=== PATIENT | male | born 1950 | race Caucasian/White ===

== ENCOUNTER 2019-05-16 08:34 | Inpatient (IN) | payer OTHER, MEDICAID ==
[~2019-05-16] VITALS: Ht 111.8 cm; Wt 69.4 kg
[2019-05-16 08:34] VITALS: BP 181/58
--- NOTE | 2019-05-16 08:34 | NUR ---
Patient BIBA ALS accompanied by Lio ramesh 101, transferred to bed 7. RN evaluating patient at bedside.
--- NOTE | 2019-05-16 08:52 | NUR ---
ariana in by ems from [facility]---pt states has had hacking cough x 3 days anterior chest wall pain with cough---awoke with sob
[2019-05-16] MEDS ORDERED: TRA200 PO (08:53)
[2019-05-16] MEDS ORDERED: GLIP10TE PO (08:53)
[2019-05-16] MEDS ORDERED: MAGN400S60 PO (08:53)
[2019-05-16] MEDS ORDERED: MULT-1640 PO (08:53)
[2019-05-16] MEDS ORDERED: HYDR100T79 PO (08:53)
[2019-05-16] MEDS ORDERED: PRAV20TA2 PO (08:53)
[2019-05-16] MEDS ORDERED: GABA300C PO (08:53)
[2019-05-16] MEDS ORDERED: CYCL25CA9 PO (08:53)
[2019-05-16] MEDS ORDERED: AMLO5TAB PO (08:53)
[2019-05-16] MEDS ORDERED: METF500T2 PO (08:53)
[2019-05-16] MEDS ORDERED: BISA-213 RC (08:53)
[2019-05-16] MEDS ORDERED: OMEP40EC24 PO (08:53)
[2019-05-16] MEDS ORDERED: PRED5TAB7 PO (08:53)
[2019-05-16] MEDS ORDERED: ASPI-1718 PO (08:53)
--- NOTE | 2019-05-16 09:06 | NUR ---
REPORT OBTAINED FROM DEB RN
[2019-05-16] MEDS ORDERED: predniSONE 20 MG TAB PO ONE (09:40)
[2019-05-16 10:51] LABS: BASOPHILS % (AUTO) 0.3 % (0.0-2.0); EOSINOPHILS # (AUTO) 0.1 K/uL (0-0.4); HEMATOCRIT 42.1 % (36-52); LYMPHOCYTES # (AUTO) 1.3 K/uL (2.0-11.5); LYMPHOCYTES % (AUTO) 9.9 % (20.5-51.1); MEAN CORPUSCULAR HEMOGLOBIN 29 pg (27-31); MEAN CORPUSCULAR HGB CONC 33 g/dL (33-37); MEAN CORPUSCULAR VOLUME 87.4 fL (80-94); MONOCYTES % (AUTO) 7.6 % (1.7-9.3); NEUTROPHILS # (AUTO) 10.6 K/uL (1.8-7.7); NEUTROPHILS % (AUTO) 81.2 % (42.2-75.2); PLATELET COUNT (AUTO) 261 K/uL (140-450); RED BLOOD CELL COUNT(AUTO) 4.81 MIL/uL (4.20-6.10); RED CELL DISTRIBUTION WIDTH 14.1 % (11.6-13.7); WHITE BLOOD COUNT (AUTO) 13.1 K/uL (4.8-10.8)
[2019-05-16] MEDS ORDERED: FUROSEMIDE 40 MG/4 ML VIAL IVP ONE (11:30)
--- NOTE | 2019-05-16 11:34 | NUR ---
[facility] [employer] [employer] [employer] MARKUP CLERK CALLED FOR CRITICAL LAB REPORT
[2019-05-16 11:39] LABS: ANION GAP 17.2 (8-16); CARBON DIOXIDE 20.4 mmol/L (21-32); CREATININE 1.2 mg/dL (0.7-1.3); POTASSIUM 3.6 mmol/L (3.5-5.1)
[2019-05-16 11:45] LABS: ALBUMIN 2.6 g/dL (3.4-5.0); TOTAL BILIRUBIN 0.9 mg/dL (0.0-1.0)
[2019-05-16] MEDS: NACL 0.9% 1,000 ML IV SCH (12:08)
[2019-05-16] MEDS ORDERED: HYDROcodone/APAP 7.5/325 MG 1 TAB PO PRN (12:10)
[2019-05-16] MEDS ORDERED: KETOROLAC 30 MG/ML VIAL IVP PRN (12:10)
[2019-05-16] MEDS ORDERED: ONDANSETRON 4 MG/2 ML VIAL IM/IVP PRN (12:10)
[2019-05-16] MEDS ORDERED: DOCUSATE SODIUM 100 MG GELCAP PO PRN (12:10)
--- NOTE | 2019-05-16 12:15 | NUR ---
Dr. Jones is evaluating the patient at bedside.
--- NOTE | 2019-05-16 12:31 | NUR ---
SKIN BLANCHEABLE ON BUTTOCKS, CHARGE NURSE NOTIFIED.
[2019-05-16] MEDS ORDERED: hePARIN / DEXT 5% PREMIX 250 ML IV SCH (12:50)
[2019-05-16] MEDS ORDERED: HEPARIN PER PHARMACY MC PRN (12:50)
[2019-05-16] MEDS ORDERED: DEXTROSE 50% 50 ML SYR IVP PRN (12:50)
--- NOTE | 2019-05-16 12:50 | NUR ---
RECEIVED REPORT FROM ER NURSE. PATIENT IS AAOX4, ON 4L NASAL CANNULA. PT CAME FROM [facility], [facility]. 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 IV TO RIGHT WRIST 24G. BEGAN INFUSING NS AT 10ML/HR. ADMINISTERED HYDRALAZINE PER ORDER. VITAL SIGNS ARE: T 98.6, 92% 4L, PA 74, BP 169/100. WILL CONTINUE WITH PLAN OF CARE FOR THE DAY
--- NOTE | 2019-05-16 12:54 | NUR ---
Patient will be admitted to care of DR MEDINA. Admited to TELEMETRY. Will go to room 127A. Belongings list completed. Report to MACY HEDRICK.
[2019-05-16 13:16] LABS: PROTHROMBIN TIME 9.8 secs (10.8-13.4)
[2019-05-16 13:17] LABS: CHOL/HDL RATIO 3.6 (1-4.5); FREE T4 (FREE THYROXINE) 1.24 ng/dL (0.76-1.46); MAGNESIUM 1.7 mg/dL (1.8-2.4); PHOSPHORUS 2.8 mg/dL (2.5-4.9); THYROID STIMULATING HORMONE 1.67 uIU/mL (0.34-3.74)
[2019-05-16] MEDS: hydrALAZINE 25 MG TAB PO SCH ×2 (13:34→17:43)
[2019-05-16] MEDS: hePARIN / DEXT 5% PREMIX 250 ML IV SCH (14:34)
--- NOTE | 2019-05-16 14:40 | NUR ---
BEGAN HEPARIN INFUSION AT 800U/HR. GAVE 4100ML HEPARIN BOLUS. CO SIGNED WITH CHARGE NURSE NANETTE. INFORMED DR DOBBINS TO PUT IN ORDER FOR PTT DRAW AT 2039.
[2019-05-16 16:00] VITALS: BP 104/63
[2019-05-16] MEDS: BLOOD GLUCOSE MONITORING 1 DEV DEV FS SCH ×2 (16:30→20:24)
[2019-05-16] MEDS ORDERED: glipiZIDE ER 5 MG TABER PO SCH (17:00)
[2019-05-16] MEDS: FUROSEMIDE 40 MG/4 ML VIAL IVP SCH (17:41)
[2019-05-16] MEDS: metFORMIN 500 MG TAB PO SCH (17:43)
[2019-05-16] MEDS: INSULIN LISPRO SLIDING SCALE 100 UNITS/ML VIAL SUBQ PRN ×2 (17:52→20:24)
--- NOTE | 2019-05-16 17:54 | NUR ---
ADMINISTERED PAIN MEDICATION WITH PM MEDS FOR PAIN 12/18. GAVE PATIENT 4U INSULIN FOR BLOOD SUGAR OF 240
--- NOTE | 2019-05-16 18:17 | NUR ---
Spoke to Romie at [facility] transfer center for laborer aquatic life. and faxed clinical and order, no bed for rosemary, will call tomorrow in am.
--- NOTE | 2019-05-16 19:15 | NUR ---
RECEIVED PT SLEEPING, EASILY AROUSABLE, AAOX4, VITAL SIGNS STABLE, 94% 9N O2 AT 2L NC, DENIES ANY PAIN OR SOB NOTED, ON HEPARIN DRIP INFUSING WELL AT 800 UNITS/HOUR, PT WITH HX OF PARAPLEGIC, SAFETY MEASURES IN PLACE, CALL LIGHT WITHIN REACH.
[2019-05-16 20:00] VITALS: BP 120/58
[2019-05-16] MEDS: METOPROLOL 50 MG TAB PO SCH (20:18)
[2019-05-16] MEDS: cycloSPORINE (MODIFIED) 25 MG CAPLF PO SCH (20:18)
[2019-05-16] MEDS: GABAPENTIN 300 MG CAP PO SCH (20:18)
[2019-05-16] MEDS ORDERED: cycloSPORINE (MODIFIED) 25 MG CAPLF PO SCH ×2 (21:00)
[2019-05-16] MEDS ORDERED: LABETALOL 200 MG TAB PO SCH (21:00)
--- NOTE | 2019-05-16 21:10 | NUR ---
CALLED LAB AND TALKED TO THANH TO FOLLOW UP PTT TIMED DRAW AT 2039, STATED SHE WILL INFORM LEA BATTERY TESTER IN ER.
[2019-05-16 23:22] LABS: PROTHROMBIN TIME 10.2 secs (10.8-13.4)
[2019-05-17] VITALS: BP 118/63
[2019-05-17] MEDS: hePARIN / DEXT 5% PREMIX 250 ML IV SCH ×3 (00:28→20:59)
--- NOTE | 2019-05-17 00:30 | NUR ---
PT SLEEPING, EASILY AROUSABLE, VITAL SIGNS STABLE, DENIES ANY PAIN, NO SOB NOTED, PTT RESULT OF 35.2, PROTOCOL IN PLACE, HEPARIN 2000 UNITS GIVEN IV PUSH AND RATE INCREASED TO 900UNITS/H, WITNESSED BY RCIS LINDA, CONTINUE TO MONITOR CLOSELY.
--- NOTE | 2019-05-17 03:50 | NUR ---
PT SLEEPING, OPEN EYES TO TOUCH, VITAL SIGNS STABLE, DENIES ANY CHEST PAIN OR SOB, HEPARIN DRIP INFUSING WELL, MONITORED CLOSELY.
[2019-05-17 04:00] VITALS: BP 148/78
[2019-05-17] MEDS: INSULIN LISPRO SLIDING SCALE 100 UNITS/ML VIAL SUBQ PRN ×4 (05:59→23:37)
--- NOTE | 2019-05-17 06:00 | NUR ---
BLOOD SUGAR CHECKED WITH 180 RESULT, COVERAGE GIVEN, DENIES ANY CHEST PAIN, NO SOB NOTED, HEPARIN DRIP INFUSING WELL AT 900 UNITS/H, MONITORED CLOSELY.
[2019-05-17] MEDS: BLOOD GLUCOSE MONITORING 1 DEV DEV FS SCH ×5 (06:30→23:38)
--- NOTE | 2019-05-17 07:15 | NUR ---
PT AWAKE, NO SIGNS OF DISTRESS, REPORT GIVEN TO MACY COWART FOR CONTINUITY OF CARE.
[2019-05-17 08:00] VITALS: BP 149/59
--- NOTE | 2019-05-17 08:35 | NUR ---
PATIENT HAS BEEN SCREENED AND CATEGORIZED HIGH NUTRITION RISK. PATIENT WILL BE SEEN WITHIN 1-2 DAYS OF ADMISSION. 05/17/19-05/18/[address]
[2019-05-17] MEDS: GABAPENTIN 300 MG CAP PO SCH ×2 (08:53→20:08)
[2019-05-17] MEDS: hydrALAZINE 25 MG TAB PO SCH ×3 (08:53→18:47)
[2019-05-17] MEDS: METOPROLOL 50 MG TAB PO SCH ×2 (08:53→20:08)
[2019-05-17] MEDS: metFORMIN 500 MG TAB PO SCH (08:53)
[2019-05-17] MEDS: LACTOBACILLUS RHAMNOSUS GG 1 EACH CAP PO SCH (08:54)
[2019-05-17] MEDS: cycloSPORINE (MODIFIED) 25 MG CAPLF PO SCH ×2 (08:55→20:57)
[2019-05-17] MEDS: FUROSEMIDE 40 MG/4 ML VIAL IVP SCH (08:55)
[2019-05-17] MEDS: predniSONE 5 MG TAB PO SCH (08:55)
[2019-05-17] MEDS: PANTOPRAZOLE 40 MG INJ VIAL IVP SCH (08:55)
[2019-05-17] MEDS ORDERED: ASPIRIN 81 MG TAB.CHEW PO SCH (09:00)
[2019-05-17] MEDS ORDERED: amLODIPine 5 MG TAB PO SCH (09:00)
[2019-05-17] MEDS ORDERED: glipiZIDE 10 MG TAB PO SCH (09:00)
[2019-05-17 09:32] LABS: ANION GAP 16.3 (8-16); CARBON DIOXIDE 22.9 mmol/L (21-32); CREATININE 1.5 mg/dL (0.7-1.3); POTASSIUM 4.2 mmol/L (3.5-5.1)
--- NOTE | 2019-05-17 09:32 | NUR ---
ADMINISTERED MORNING MEDS. IV ON THE R WRIST INFILTRATED. STARTED ANOTHER IV 24G ON THE R THUMB. PT TOLERATED WELL. DR. SHORT, FARMWORKER RICE CAME AND ASSESSED PT.
[2019-05-17 10:17] LABS: BASOPHILS # (AUTO) 0.1 K/uL (0.00-0.22); BASOPHILS % (AUTO) 0.7 % (0.0-2.0); HEMATOCRIT 40.1 % (36-52); HEMOGLOBIN 13.2 g/dL (12.0-18.0); LYMPHOCYTES # (AUTO) 0.9 K/uL (2.0-11.5); LYMPHOCYTES % (AUTO) 7.6 % (20.5-51.1); MEAN CORPUSCULAR HEMOGLOBIN 29 pg (27-31); MEAN CORPUSCULAR HGB CONC 33 g/dL (33-37); MEAN CORPUSCULAR VOLUME 87.6 fL (80-94); MONOCYTES # (AUTO) 0.7 K/uL (0.8-1.0); MONOCYTES % (AUTO) 5.7 % (1.7-9.3); NEUTROPHILS # (AUTO) 10.2 K/uL (1.8-7.7); PLATELET COUNT (AUTO) 295 K/uL (140-450); RED BLOOD CELL COUNT(AUTO) 4.58 MIL/uL (4.20-6.10); RED CELL DISTRIBUTION WIDTH 14.5 % (11.6-13.7); WHITE BLOOD COUNT (AUTO) 11.9 K/uL (4.8-10.8)
[2019-05-17] MEDS ORDERED: PIPERACILLIN/TAZOBACTAM 2.25 GM in DEXTROSE 5% 50 ML IV SCH (10:30)
[2019-05-17 11:02] LABS: BARBITURATE, URINE NEG. ng/ml (NEG <=200); BENZODIAZEPINE, URINE NEG. ng/mL (NEG <=200); CANNABINOID, URINE NEG. ng/mL (NEG <=50); COCAINE, URINE NEG. ng/mL (NEG <=300); OPIATE, URINE NEG. ng/mL (NEG <=2000); PHENCYCLIDINE SCREEN,URINE NEG. ng/mL (NEG <=25)
--- NOTE | 2019-05-17 11:23 | NUR ---
PHARMACIST CALLED WITH PTT OF 42.2. PER PROTOCOL: GIVE BOLUS 2000U AND INCREASE RATE OF 100U OF HEPARIN. W
--- NOTE | 2019-05-17 11:36 | NUR ---
DC PLANNING 69 YRS OLD MALE PATIENT WAS ADMITTED FROM [facility] WITH A DX OF CHEST PAIN. PT HAS A HX OF CHF, CAD, AND S/P CABG. RENAL FAILURE S/P TRANSPLANT AKA DM AND HTN EKG SHOWED SR, APRN DR GIORDANO SEEN PT STARTED HEPARIN DRIP , ECHO AND PLAN TO TRANSFER FOR CARDIAC CATH. FAXED TO [facility] NO BED AVAILABLE, [facility] ACCEPTED PT SPOKE WITH [facility]CHIT[facility] BED CONTROL REVIEW THE CASE AND CALL BACK. CALLED DR WILLIAM Trevino. ASKED HIM IF HE IS AVAILABLE TO DO THE CARDIAC CATH AT [facility]. DR THOMAS STATED OK TO GO TO [facility] IF THEY NEED HIM . CALLED BACK MELANIE AND NOTIFIED HER THAT DR THOMAS IS AVAILABLE AND PROVIDED HER HIS CELL PHONE. AND NOTIFIED DR MEDINA AND DR ORR WELL.CM TO FOLLOW Addendum: 05/19/19 at 1447 by Debbie Fonseca CM PER CHRISTIANO HARRINGTON CARD DEALER, PATIENT WILL GO TO ROOM 223-B UNDER DR[address] TA. CONTACTED [facility] AND ARRANGED AN ALS TRANSPORT, ABLE TO SPEAK TO ALEKS. PICK WILL BE AT 5PM. PRIMARY RN STEPHANIA AND DR. ORR MADE AWARE.
[2019-05-17] MEDS: BENZONATATE 100 MG CAPLF PO PRN ×2 (11:51→18:47)
[2019-05-17] MEDS: NACL 0.9% 1,000 ML IV SCH (11:54)
[2019-05-17 12:00] VITALS: BP 153/64
[2019-05-17] MEDS ORDERED: LAS20I IVP (12:59)
[2019-05-17] MEDS ORDERED: PIPE50SO5 IV (12:59)
[2019-05-17] MEDS ORDERED: METO50TA99 PO (13:01)
--- NOTE | 2019-05-17 13:21 | NUR ---
GLENYS assessment/discharge plan High Risk DC Screen Yes Name: Marlon Poon Relationship: son Pre-Admission Living Arrangements: SNF Tentative Discharge Plan Summary: Patient is a 69 year old male admitted for chest pain. Per admission coordinator Kika from [facility] , patient is on a 7 day bed hold and has been living at their facility since January 2017. I asked her if patient has a POLST or Advance Directive since there is no POLST or Advance Directive in chart. She referred me to speak with their public health social worker Michelle. Michelle stated she will find out if patient has a POLST and Advance Directive and call me back. It Trainee and/or Semiconductor Wafer Inspector will follow up as needed. Signature: GLENYS Watt Date: May 17, 2019
--- NOTE | 2019-05-17 15:17 | NUR ---
DR RUDD HERE TO CONSULT ON PT.
--- NOTE | 2019-05-17 15:40 | NUR ---
SEVERAL ATTEMPTS FOR ABG DONE UNABLE TO OBTAIN NOTIFIED DR. DOBBINS AND WILL ENDORSE TO NOC SHIFT
[2019-05-17 16:00] VITALS: BP 140/66
[2019-05-17] MEDS ORDERED: methylPREDNISolone SS 125 MG/2 ML VIAL IVP SCH (16:00)
[2019-05-17] MEDS: glipiZIDE 10 MG TAB PO SCH (16:30)
--- NOTE | 2019-05-17 16:42 | NUR ---
GAVE ALL IV PUSH MEDS. HELD ALL ORAL MEDS D/T PT WEARING THE BIPAP. PT WAS RUNNING LOW 80'S O2 SAT EARLIER. STARTED ON BI PAP, WITH 80% PT IS SATURATING AT 92%. R/T AND MD BOTH AGREE NOT TO REMOVE THE BIPAP FOR MED ADMINISTRATION. WILL HOLD UNTIL MAYBE DINNER TIME. PT'S BS IS LOW AT 66. WILL NEED TO EAT. GAVE SOLUMEDROL SO IT MAY BE HIGHER LATER.
--- NOTE | 2019-05-17 18:40 | NUR ---
GOT PERMISSION TO TAKE PT OFF THE BIPAP SO THAT HE CAN EAT. WILL GIVE HIM HIS BP MED AND HIS TESSLON PEARLS FOR COUGH. SON AT BEDSIDE.
[2019-05-17] MEDS ORDERED: ALBUTEROL SULFATE/IPRATROPIU 3 ML SOL IH SCH (19:00)
--- NOTE | 2019-05-17 19:13 | NUR ---
ENDORSED PT TO THE FIELD SERVICER NURSE. PT JUST FINISHED DINNER. DESATURATING ON RA SO PUT ON THE MAXIMIZER AT 5L. PT SATURATING AT 92-93%. VISITING WITH FAMILY. NO SIGNS OF DISTRESS. LESS COUGHING. PT IN STABLE CONDITION. NOT SURE IF HE WILL BE TRANSFERRED TO [facility]. MD WANTS HIM BACK ON THE BIPAP SOON.
--- NOTE | 2019-05-17 19:15 | NUR ---
RECEIVED PT ON BED, AAOX4, SITTING ON HIGH FOWLERS POSITION, VITAL SIGNS STABLE, DENIES ANY PAIN, 92% SAT ON OXIMIZER 6L, WITH OCCASIONAL COUGH, NO SOB NOTED, HEPARIN DRIP INFUSING WELL AT 1000 UNITS/H, PLAN OF CARE DISCUSSED, SAFETY MEASURES IN PLACE, CALL LIGHT WITHIN REACH.
[2019-05-17] MEDS: ALBUTEROL SULFATE/IPRATROPIU 3 ML SOL IH SCH (19:39)
[2019-05-17] MEDS: BUDESONIDE 0.5 MG/2 ML NEBU INH SCH (19:46)
[2019-05-17 20:00] VITALS: BP 138/60
[2019-05-17] MEDS: ATORVASTATIN 20 MG TAB PO SCH (20:08)
[2019-05-17] MEDS: guaiFENesin 600 MG TABER PO SCH (20:09)
[2019-05-17] MEDS: methylPREDNISolone SS 40 MG/ML VIAL IVP SCH (20:17)
[2019-05-17] MEDS: FUROSEMIDE 20 MG/2 ML VIAL IVP SCH (20:17)
--- NOTE | 2019-05-17 20:18 | NUR ---
BLOOD SUGAR CHECKED WITH 255 RESULT, COVERAGE GIVEN, DUE MEDS ADMINISTERED WITH EDUCATION PROVIDED, PT VOIDED FREELY USING URINAL, RT DIONISIO MADE AWARE THAT PT IS READY TO BE PUT BACK ON BIPAP, ALL NEEDS ATTENDED.
[2019-05-17] MEDS: PIPERACILLIN/TAZOBACTAM 2.25 GM in DEXTROSE 5% 50 ML IV SCH (20:20)
--- NOTE | 2019-05-17 20:20 | NUR ---
ATTEMPTED TO GET AN ABG BUT WAS UNSUCCESSFUL. DR. SILVERMAN NOTIFIED AND CANCELLED ABG. PT IS NOW ON BIPAP 04/14,12,60%
[2019-05-17] MEDS ORDERED: ATORVASTATIN 20 MG TAB PO SCH (21:00)
[2019-05-17 21:29] LABS: ANION GAP 19.1 (8-16); CARBON DIOXIDE 21.5 mmol/L (21-32); CREATININE 1.7 mg/dL (0.7-1.3); POTASSIUM 4.6 mmol/L (3.5-5.1)
--- NOTE | 2019-05-17 22:00 | NUR ---
ROUNDS MADE, SEEN PT SLEEPING, SAT-97% ON BIPAP, NO DISTRESS NOTED, MONITORED CLOSELY.
[2019-05-18] VITALS: BP 151/64
--- NOTE | 2019-05-18 | NUR ---
PT SLEEPING, EASILY AROUSABLE, VITAL SIGNS STABLE, SAT-98% ON BIPAP, DENIES ANY PAIN, NO SOB NOTED, BLOOD SUGAR CHECKED WITH 246 RESULT, COVERAGE GIVEN, HEPARIN DRIP INFUSING WELL, MONITORED CLOSELY.
--- NOTE | 2019-05-18 01:40 | NUR ---
BIPAP ALARMING, SEEN PT WITH MASK OFF, PT AWAKE, SAT DROPPED TO 87%, PUT BACK ON BIPAP, SAT WENT UP TO 96%, MONITORED CLOSELY.
[2019-05-18] MEDS: BENZONATATE 100 MG CAPLF PO PRN (03:27)
--- NOTE | 2019-05-18 03:30 | NUR ---
PT SLEEPING, EASILY AROUSABLE, VITAL SIGNS STABLE, PTT LAB DRAWN BY PROGRAM HOST, BLOOD SUGAR CHECKED WITH 208 RESULT, COVERAGE GIVEN, PT WITH OCCASIONAL COUGH, MEDICATED WITH TESSALON PERLES PRN, HEPARIN DRIP INFUSING WELL AT 1300 UNITS/H, MONITORED CLOSELY.
[2019-05-18] MEDS: INSULIN LISPRO SLIDING SCALE 100 UNITS/ML VIAL SUBQ PRN ×5 (03:35→20:34)
[2019-05-18] MEDS: BLOOD GLUCOSE MONITORING 1 DEV DEV FS SCH ×5 (03:36→20:38)
[2019-05-18 04:00] VITALS: BP 139/79
[2019-05-18] MEDS: NACL 0.9% 1,000 ML IV SCH ×2 (04:13→12:08)
[2019-05-18] MEDS: PIPERACILLIN/TAZOBACTAM 2.25 GM in DEXTROSE 5% 50 ML IV SCH ×3 (04:16→21:18)
[2019-05-18] MEDS: hePARIN / DEXT 5% PREMIX 250 ML IV SCH (04:24)
--- NOTE | 2019-05-18 04:30 | NUR ---
PTT RESULT OF 53.3, NO CHANGE, NEXT PTT DRAW SCHEDULED FOR 0940, NEW HEPARIN BAG STARTED WITH RATE OF 1300 UNITS/H, DENIES ANY PAIN, NO SOB NOTED, MONITORED CLOSELY.
[2019-05-18] MEDS ORDERED: methylPREDNISolone SS 125 MG/2 ML VIAL IVP SCH (05:00)
[2019-05-18] MEDS: glipiZIDE 10 MG TAB PO SCH ×2 (06:36→18:35)
--- NOTE | 2019-05-18 07:25 | NUR ---
PT AWAKE, NO DISTRESS NOTED, BEDSIDE REPORT GIVEN TO RN ASH FOR CONTINUITY OF CARE.
--- NOTE | 2019-05-18 07:30 | NUR ---
RECEIVED ON BED AAOX4. ON BIPAP WITH 95% O2 SATS. NO SOB NOTED. IV TO RT AC AND RT THUMB PATENT AND INTACT. CHEST, DIMINISHED AIR ENTRY TO THE BASES. ABDOMEN SOFT, BOWEL SOUNDS PRESENT. PT WITH HX OF BILATERAL AKA, STUMP CLEAR, SKIN INTACT. INSTRUCTED PT TO CALL FOR ASSISTANCE, CALL LIGHT WITHIN REACH, PT VERBALIZED UNDERSTANDING.
[2019-05-18 07:33] LABS: BASOPHILS # (AUTO) 0.1 K/uL (0.00-0.22); BASOPHILS % (AUTO) 0.6 % (0.0-2.0); EOSINOPHILS % (AUTO) 0.1 % (0.0-4.0); HEMATOCRIT 41.2 % (36-52); HEMOGLOBIN 13.7 g/dL (12.0-18.0); LYMPHOCYTES # (AUTO) 0.4 K/uL (2.0-11.5); LYMPHOCYTES % (AUTO) 4.9 % (20.5-51.1); MEAN CORPUSCULAR HEMOGLOBIN 30 pg (27-31); MEAN CORPUSCULAR HGB CONC 33 g/dL (33-37); MEAN CORPUSCULAR VOLUME 88.4 fL (80-94); MONOCYTES # (AUTO) 0.2 K/uL (0.8-1.0); MONOCYTES % (AUTO) 2.8 % (1.7-9.3); NEUTROPHILS # (AUTO) 8.1 K/uL (1.8-7.7); NEUTROPHILS % (AUTO) 91.6 % (42.2-75.2); PLATELET COUNT (AUTO) 317 K/uL (140-450); RED BLOOD CELL COUNT(AUTO) 4.66 MIL/uL (4.20-6.10); RED CELL DISTRIBUTION WIDTH 14.6 % (11.6-13.7); WHITE BLOOD COUNT (AUTO) 8.8 K/uL (4.8-10.8)
[2019-05-18] MEDS: BUDESONIDE 0.5 MG/2 ML NEBU INH SCH ×2 (07:50→19:30)
[2019-05-18] MEDS: ALBUTEROL SULFATE/IPRATROPIU 3 ML SOL IH SCH ×3 (07:50→13:28)
[2019-05-18 08:00] VITALS: BP 143/63
--- NOTE | 2019-05-18 08:00 | NUR ---
RECIVED PT ON BIPAP WITH SETTINGDS CHARTED REMOVED PT FROM BIPAP AFTER PLACED ON 5LPM OXYMIZER SO PT COULD EAT BREAKFEAST SEEMS RO BE STEVIE SPO2 .92 WILL CONT TO ADELINAIOR
--- NOTE | 2019-05-18 08:04 | NUR ---
PATIENT'S EMILIE SCORE HAS CHANGED TO 16 THEREFOR PATIENT WILL BE RE-CATEGORIZED MODERATE RISK. PATIENT WILL BE SEEN 3-5 DAY FROM ADMISSION RADHA HERNANDEZ RD
[2019-05-18 08:57] LABS: MAGNESIUM 1.8 mg/dL (1.8-2.4); PHOSPHORUS 3.8 mg/dL (2.5-4.9)
[2019-05-18] MEDS ORDERED: FUROSEMIDE 40 MG/4 ML VIAL IVP SCH ×2 (09:00)
[2019-05-18] MEDS: PANTOPRAZOLE 40 MG INJ VIAL IVP SCH (09:04)
[2019-05-18] MEDS: methylPREDNISolone SS 40 MG/ML VIAL IVP SCH ×2 (09:04→20:41)
[2019-05-18 09:05] LABS: ANION GAP 15.7 (8-16); CARBON DIOXIDE 24.9 mmol/L (21-32); POTASSIUM 4.6 mmol/L (3.5-5.1)
[2019-05-18] MEDS: predniSONE 5 MG TAB PO SCH (09:05)
[2019-05-18] MEDS: LACTOBACILLUS RHAMNOSUS GG 1 EACH CAP PO SCH (09:05)
[2019-05-18] MEDS: GABAPENTIN 300 MG CAP PO SCH ×2 (09:05→21:05)
[2019-05-18] MEDS: FUROSEMIDE 20 MG/2 ML VIAL IVP SCH ×2 (09:05→20:48)
[2019-05-18] MEDS: amLODIPine 5 MG TAB PO SCH (09:06)
[2019-05-18 09:07] LABS: CREATININE 1.8 mg/dL (0.7-1.3)
[2019-05-18] MEDS: hydrALAZINE 25 MG TAB PO SCH ×3 (09:07→18:26)
[2019-05-18] MEDS: guaiFENesin 600 MG TABER PO SCH ×2 (09:07→20:59)
[2019-05-18] MEDS: ASPIRIN 81 MG TAB.CHEW PO SCH (09:07)
[2019-05-18] MEDS: METOPROLOL 50 MG TAB PO SCH ×2 (09:08→21:00)
[2019-05-18] MEDS: cycloSPORINE (MODIFIED) 25 MG CAPLF PO SCH ×2 (09:08→21:04)
--- NOTE | 2019-05-18 10:00 | NUR ---
PT PLACED BACK ON BIPAP PER PT REQUEST ON BIPAP WITH SETTINGS CHARTED WILL CONTINUE TO MONITOR RN AWARE
[2019-05-18 12:00] VITALS: BP 143/61
--- NOTE | 2019-05-18 13:20 | NUR ---
HHN RX GIVEN INLINE WITH DNIT DOSE DUONEB NO ILL EFFECTS NOTED
--- NOTE | 2019-05-18 13:30 | NUR ---
PT SEEN BY DR. SIMON WITH NEW ORDERS.
--- NOTE | 2019-05-18 14:00 | NUR ---
LATEST PTT: 67.7, NO CHANGE IN DRIP. PT ALREADY HAS 2 THERAPEUTIC RESULTS. PTT BLOOD DRAW DAILY STARTING TOMORROW. PHARMACIST CAROLYN NOTIFIED.
--- NOTE | 2019-05-18 14:00 | NUR ---
ULTRASOUND OF THE KIDNEYS ON GOING AT THE BEDSIDE.
[2019-05-18 15:13] LABS: APPEARANCE,URINE CLEAR (CLEAR); BILIRUBIN,URINE NEGATIVE (NEGATIVE); BLOOD, URINE NEGATIVE (NEGATIVE); COLOR,URINE YELLOW (YELLOW); PH,URINE 5.5 (5.0-9.0); UGLUCOSE NEGATIVE (NEGATIVE)
[2019-05-18 15:14] LABS: LEUKOCYTE ESTERASE ,URINE NEGATIVE (NEGATIVE); NITRITE, URINE NEGATIVE (NEGATIVE)
[2019-05-18 15:25] LABS: HYALINE CASTS, URINE 0-10 /LPF (None Seen); RBC,URINE 0 /HPF (0-5); WBC,URINE 0-5 /HPF (0-5)
[2019-05-18 16:00] VITALS: BP 148/71
--- NOTE | 2019-05-18 16:30 | NUR ---
PT WAS ABLE TO SIT ON HIGH BACK REST IN BED WITH THE HELP OF RT. PT TOLERATED INCENTIVE SPIROMETER (900 MLS). PT VERBALIZED UNDERSTANDING THE USE OF IS FOR 10 TIMES WHILE AWAKE AND IN SITTING POSITION. FI02 DECREASED TO 40% BY RT.
--- NOTE | 2019-05-18 18:16 | NUR ---
REMOVED PT FROM BIPAP PLACED ON 6 LPM OXYMIZER TO EAT DINNER PT AWAKE ALERT SPO2 94 %
--- NOTE | 2019-05-18 19:27 | NUR ---
PT AWAKE. NO SOB NOTED. NO SIGNS OF PAIN. FAMILY AT THE BEDSIDE VISITING. ENDORSED TO NEXT SHIFT NURSE FOR CONTINUITY OF CARE.
--- NOTE | 2019-05-18 19:30 | NUR ---
RECEIVED REPORT FORM ASH RN DAYSHIFT NURSE AT BEDSIDE FOR CONTINUITY OF CARE, PT IN STABLE CONDITION.
[2019-05-18 20:00] VITALS: BP 109/60
--- NOTE | 2019-05-18 20:00 | NUR ---
PT SITTING UP IN BED AOX4 SKIN INTACT , HE HAS BILATERAL AKA AND MISSING FINGERS ON RIGHT HAND. PT HAS OXYMIZER RUNNING AT 6 LITERS. LUNG SOUNDS DIMINISHED WITH RHALES. PT HAS NO S/S OF PAIN OR DISTRESS NOTED. V/S FOLLOWS; T 97 P P 96 R 20 B/P 109/60 02 99% WITH OXYMIZER AT 6 LITERS. ALL FALLS PRECAUTIONS IN PLACE.
[2019-05-18] MEDS: ATORVASTATIN 20 MG TAB PO SCH (20:58)
[2019-05-18] MEDS ORDERED: FUROSEMIDE 20 MG/2 ML VIAL IVP SCH (21:00)
[2019-05-18] MEDS: ACETYLCYSTEINE 20% (200 MG/ML) 200 MG/ML VIAL PO SCH (21:00)
--- NOTE | 2019-05-18 21:00 | NUR ---
PT FINGERSTICK IS 296. HE WAS GIVEN 6 UNITS OF HUMALOG COVERAGE. BOTH IV SITES R F/A 22G AND 24G ON R THUMB INTACT AND FLUSHED PATENT. PT CONTINUES ON HEPARIN GTT ORDERED. PT GIVEN ORDERED ZOSYN HUNG AND RUNNING AT 100MLS/HR ORDERED. PT ALSO GIVEN ORDERED LASIX, IVP SOLUMEDROL, LIPITOR, MUCINEX , NEURONTIN, AND NEORAL. ORDERED LOPRESSOR HELD DUE TO DECREASED B/P 109/60. EDUCATION REGARDING MEDICATION PROVIDED INCLUDING SIDE EFFECTS.
[2019-05-18] MEDS ORDERED: cycloSPORINE (MODIFIED) 25 MG CAPLF PO ONE (21:02)
--- NOTE | 2019-05-18 21:30 | NUR ---
PT PLACED ON BIPAP, HE DECLINED TO BE TURNED, ALL REQUESTED NEEDS ATTENDED ORDERED, AND ALL FALLS PRECAUTIONS IN PLACE.
[2019-05-19] VITALS: BP 139/68
--- NOTE | 2019-05-19 00:30 | NUR ---
PT IN BED NO S/S PT CONTINUES ON BIPAP, NO S/S OF PAIN OR DISTRESS NOTED PT DECLINED TO BE TURNED AND REPOSITIONED IN BED. PT HEPARIN BAG WAS REPLACED, HE CONTINUES ON 13 UNITS CONTINUOUS GTTS. PT FINGERSTICK IS 259, HE WAS GIVEN 6 UNITS HUMALOG COVERAGE. V/S FOLLOWS; T 97.5 P 68 R 20 B/P 139/68 02 95%. ALL FALLS PRECAUTIONS IN PLACE.
[2019-05-19] MEDS: INSULIN LISPRO SLIDING SCALE 100 UNITS/ML VIAL SUBQ PRN ×4 (00:53→12:03)
[2019-05-19] MEDS: hePARIN / DEXT 5% PREMIX 250 ML IV SCH ×2 (00:56→01:01)
[2019-05-19 04:00] VITALS: BP 143/65
--- NOTE | 2019-05-19 04:00 | NUR ---
PT FINGERSTICK IS 174 GIVEN 2 UNITS OF HUMALOG COVERAGE. NO S/S OF PAIN OR DISTRESS NOTED.
--- NOTE | 2019-05-19 04:30 | NUR ---
V/S FOLLOWS; T 97 P 63 R 18 B/P 143/65 02 94% W BIPAP.
[2019-05-19] MEDS: BLOOD GLUCOSE MONITORING 1 DEV DEV FS SCH ×4 (04:44→11:58)
[2019-05-19] MEDS: PIPERACILLIN/TAZOBACTAM 2.25 GM in DEXTROSE 5% 50 ML IV SCH ×2 (04:46→12:50)
[2019-05-19] MEDS: FUROSEMIDE 20 MG/2 ML VIAL IVP SCH ×2 (04:51→12:49)
--- NOTE | 2019-05-19 06:00 | NUR ---
PT RECEIVED GLIPIZIDE MEDICATION EDUCATION PROVIDED AT BEDSIDE.
[2019-05-19 06:16] LABS: BASOPHILS % (AUTO) 0.2 % (0.0-2.0); HEMATOCRIT 39.2 % (36-52); HEMOGLOBIN 13.1 g/dL (12.0-18.0); LYMPHOCYTES # (AUTO) 0.4 K/uL (2.0-11.5); MEAN CORPUSCULAR HEMOGLOBIN 29 pg (27-31); MEAN CORPUSCULAR HGB CONC 33 g/dL (33-37); MEAN CORPUSCULAR VOLUME 88.2 fL (80-94); MONOCYTES # (AUTO) 0.4 K/uL (0.8-1.0); NEUTROPHILS # (AUTO) 9.2 K/uL (1.8-7.7); NEUTROPHILS % (AUTO) 91.8 % (42.2-75.2); PLATELET COUNT (AUTO) 309 K/uL (140-450); RED BLOOD CELL COUNT(AUTO) 4.44 MIL/uL (4.20-6.10); RED CELL DISTRIBUTION WIDTH 14.3 % (11.6-13.7)
[2019-05-19] MEDS: glipiZIDE 10 MG TAB PO SCH (06:44)
--- NOTE | 2019-05-19 07:00 | NUR ---
RECEIVED PT ON BIPAP WITH SETTINGS CHARTED BREATH SOUNDS PESENT BILAT WITH SOME RALES IN RT UPPER LOAD RX GIVEN WHILT PT ON BIPAP WILL CONTINUE TO MONITOR PT ON BIPAP
[2019-05-19 07:09] LABS: ANION GAP 16.5 (8-16); CARBON DIOXIDE 22.5 mmol/L (21-32); CREATININE 1.7 mg/dL (0.7-1.3)
--- NOTE | 2019-05-19 07:25 | NUR ---
RECEIVED BEDSIDE REPORT FROM NIGHT NURSE. PATIENT IS AWAKE AND ALERT. BIPAP IN PLACE. HEPARIN DRIP INFUSING AT 13ML/HR. VIA RIGHT AC. RIGHT THUMB IV INTACT AND PATENT. NO S/S OF DISTRESS NOTED. PLANS OF CARE DISCUSSED. BED IN LOW POSITION. SAFETY MEASURES IN PLACE. CALL LIGHT WITHIN REACH.
[2019-05-19] MEDS: BUDESONIDE 0.5 MG/2 ML NEBU INH SCH (07:56)
[2019-05-19] MEDS: ALBUTEROL SULFATE/IPRATROPIU 3 ML SOL IH SCH ×2 (07:56→13:06)
[2019-05-19 08:00] VITALS: BP 154/81
[2019-05-19 08:16] LABS: PHOSPHORUS 3.9 mg/dL (2.5-4.9)
--- NOTE | 2019-05-19 08:45 | NUR ---
REMOVED PT FROM BIPAP ANR
--- NOTE | 2019-05-19 08:50 | NUR ---
REMOVED PT FROM BIPAP AND PLACED ON 6LPM OXYMIZER
[2019-05-19] MEDS ORDERED: ACETYLCYSTEINE 20% (200 MG/ML) 200 MG/ML VIAL PO SCH (09:00)
--- NOTE | 2019-05-19 09:30 | NUR ---
PATIENT FAMILY AT BEDSIDE. PATIENT IS AWAKE, ALERT, ORIENTED X4. NO S/S OF DISTRESS NOTED. HEPARIN DRIP INFUSING @ 13ML/HR. NO BLEEDING NOTED. CALL LIGHT WITHIN REACH. PATIENT USES URINAL AT BEDSIDE.
[2019-05-19] MEDS: methylPREDNISolone SS 40 MG/ML VIAL IVP SCH (09:54)
[2019-05-19] MEDS: PANTOPRAZOLE 40 MG INJ VIAL IVP SCH (09:54)
[2019-05-19] MEDS: METOPROLOL 50 MG TAB PO SCH (09:55)
[2019-05-19] MEDS: guaiFENesin 600 MG TABER PO SCH (09:55)
[2019-05-19] MEDS: LACTOBACILLUS RHAMNOSUS GG 1 EACH CAP PO SCH (09:56)
[2019-05-19] MEDS: amLODIPine 5 MG TAB PO SCH (09:56)
[2019-05-19] MEDS: hydrALAZINE 25 MG TAB PO SCH ×2 (09:56→12:48)
[2019-05-19] MEDS: ASPIRIN 81 MG TAB.CHEW PO SCH (09:57)
[2019-05-19] MEDS: GABAPENTIN 300 MG CAP PO SCH (09:57)
[2019-05-19] MEDS: cycloSPORINE (MODIFIED) 25 MG CAPLF PO SCH (10:00)
[2019-05-19] MEDS: ACETYLCYSTEINE 20% (200 MG/ML) 200 MG/ML VIAL PO SCH (10:01)
[2019-05-19] MEDS: predniSONE 5 MG TAB PO SCH (10:01)
--- NOTE | 2019-05-19 10:19 | NUR ---
AM MEDICATIONS GIVEN AND TOLERATED WELL. PATIENT IS ALERT AND ORIENTED X4. PATIENT ON OXIMIZER 6L CANNULA. FAMILY AT BEDSIDE. NO S/S OF DISTRESS NOTED. CALL LIGHT WITHIN REACH.
--- NOTE | 2019-05-19 11:45 | NUR ---
NOTIFIED DR. JEFFERSON IN REGARDS TO PATIENT'S BG OF 440. RECEIVED ORDER TO GIVE THE 10 UNITS HUMALOG ORDERED.
[2019-05-19 12:00] VITALS: BP 126/51
[2019-05-19] MEDS: NACL 0.9% 1,000 ML IV SCH (12:08)
[2019-05-19] MEDS ORDERED: METH40PD15 IVP (12:56)
[2019-05-19] MEDS ORDERED: [UNRECOGNIZED DRUG - CODE] PO (12:56)
[2019-05-19] MEDS ORDERED: ASPI81CT95 PO (12:56)
[2019-05-19] MEDS ORDERED: PUL.5N INH (12:56)
[2019-05-19] MEDS ORDERED: PANT40PD7 IVP (12:56)
[2019-05-19] MEDS ORDERED: LAS20I IVP (13:12)
[2019-05-19] MEDS ORDERED: ATOR20TA40 PO (13:12)
--- NOTE | 2019-05-19 13:30 | NUR ---
PATIENT IS AAOX4. NO S/S OF DISTRESS NOTED. CALL LIGHT WITHIN REACH. HEPARIN INFUSING @ 13ML/HR.
--- NOTE | 2019-05-19 15:30 | NUR ---
RECEIVED CRITICAL LAB VALUE: PTT- 50.1. PER PHARMACY PROTOCOL NO CHANGE IN DOSE FOR HEPARIN DRIP.
[2019-05-19 16:00] VITALS: BP 144/60
--- NOTE | 2019-05-19 16:50 | NUR ---
REPORT GIVEN TO MACY CHAMPAGNE FROM [facility]. PATIENT IS TRANSFERRING FOR HIGHER LEVEL OF CARE. PATIENT IS IN STABLE CONDITION.
--- NOTE | 2019-05-19 17:30 | NUR ---
PATIENT PICKED UP BY [facility] TRANSPORT VIA GURNEY. PATIENT GOING TO [facility]. PATIENT STABLE. IV INTACT AND PATENT TO RIGHT FOREARM AND RIGHT THUMB. ALL DISCHARGE PAPERS AND BELONGINGS SIGNED FOR. SON WITH PATIENT.
== END 2019-05-19 17:35 | disposition short-term general hospital (02) | DRG 280 ==
LOC: MED 08:34 → MMU 12:08
PROVIDERS: ADMIT General Practice; ATTEND General Practice
PROC: 5A09357 Assistance with Respiratory Ventilation, Less than 24 Consecutive Hours, Continuous Positive Airway Pressure (ICD-10-PCS; principal; 2019-05-18)
DX: I21.4 Non-ST elevation (NSTEMI) myocardial infarction (principal); I50.43 Acute on chronic combined systolic (congestive) and diastolic (congestive) heart failure; I13.0 Hypertensive heart and chronic kidney disease with heart failure and stage 1 through stage 4 chronic kidney disease, or unspecified chronic kidney disease; J44.1 Chronic obstructive pulmonary disease with (acute) exacerbation; N17.9 Acute kidney failure, unspecified; Z94.0 Kidney transplant status; Z68.43 Body mass index [BMI] 50.0-59.9, adult; D72.829 Elevated white blood cell count, unspecified; E11.22 Type 2 diabetes mellitus with diabetic chronic kidney disease; E11.51 Type 2 diabetes mellitus with diabetic peripheral angiopathy without gangrene; E78.5 Hyperlipidemia, unspecified; I25.10 Atherosclerotic heart disease of native coronary artery without angina pectoris; E66.9 Obesity, unspecified; N18.9 Chronic kidney disease, unspecified; Z85.828 Personal history of other malignant neoplasm of skin; Z89.611 Acquired absence of right leg above knee; Z89.612 Acquired absence of left leg above knee; Z95.1 Presence of aortocoronary bypass graft
CPT/HCPCS: 36415; 71045; 76770; 80048; 80053; 80305; 81001; 82550; 82948; 83036; 83605; 83690; 83735; 83880; 84100; 84439; 84443; 84484; 85025; 85610; 85730; 87081; 87804; 93005; 94640; 94660; 96374; 99285; C9113; J1644; J1885; J1940; J2543; J2920; J2930; J7030; J7060; J7512; J7516; J7608; J7620; J7626; Q0092

== ENCOUNTER 2019-06-03 15:52 | Inpatient (IN) | payer OTHER, MEDICAID ==
[~2019-06-03] VITALS: Ht 91.4 cm; Wt 72.6 kg
[~2019-06-03 15:52] MED LIST: AMLO5TAB PO; ASPI-1718 PO; ASPI81CT95 PO; ATOR20TA40 PO; CYCL25CA9 PO; GABA300C PO; GLIP10TE PO; HYDR100T79 PO; LAS20I IVP; MAGN400S60 PO; METH40PD15 IVP; METO50TA99 PO; MULT-1640 PO; OMEP40EC24 PO; PANT40PD7 IVP; PIPE50SO5 IV; PRED5TAB7 PO; PUL.5N INH; [UNRECOGNIZED DRUG - CODE] PO; cycloSPORINE (MODIFIED) 25 MG CAPLF PO SCH
[2019-06-03 16:00] VITALS: BP 117/43
--- NOTE | 2019-06-03 16:36 | NUR ---
XRAY AT BEDSIDE
[2019-06-03 16:41] LABS: BASOPHILS % (AUTO) 0.1 % (0.0-2.0); EOSINOPHILS # (AUTO) 0.1 K/uL (0-0.4); EOSINOPHILS % (AUTO) 0.8 % (0.0-4.0); HEMATOCRIT 36.4 % (36-52); HEMOGLOBIN 11.8 g/dL (12.0-18.0); LYMPHOCYTES # (AUTO) 0.4 K/uL (2.0-11.5); LYMPHOCYTES % (AUTO) 3.3 % (20.5-51.1); MEAN CORPUSCULAR HEMOGLOBIN 29 pg (27-31); MEAN CORPUSCULAR HGB CONC 32 g/dL (33-37); MEAN CORPUSCULAR VOLUME 90.2 fL (80-94); MONOCYTES # (AUTO) 0.3 K/uL (0.8-1.0); MONOCYTES % (AUTO) 2.3 % (1.7-9.3); NEUTROPHILS # (AUTO) 12.6 K/uL (1.8-7.7); NEUTROPHILS % (AUTO) 93.5 % (42.2-75.2); PLATELET COUNT (AUTO) 195 K/uL (140-450); RED BLOOD CELL COUNT(AUTO) 4.03 MIL/uL (4.20-6.10); WHITE BLOOD COUNT (AUTO) 13.5 K/uL (4.8-10.8)
--- NOTE | 2019-06-03 16:47 | NUR ---
69 Y/M BIBA TO ED C/O CP X 2 HOURS, NON RADIATING, 6/10 SHARP PAIN, DENIES SOB, [place]PT[place] OR NAUSEA. PT HAS HX OF GA X 3 WEEKS AGO. HX OF HTN AND DM. NKDA
--- NOTE | 2019-06-03 16:48 | NUR ---
PASSED MEDICAL HX- HYPERLIPIDEMIA, CHF, CAD, RENAL FAILURE, PAD, TYPE II DM C DIABETIC NEUROPATHY, DEGENERATIVE DISEASE, CEREBRAL INFARCTION. TAMI MAGDALENO. PATIENT FROM [facility].
[2019-06-03 17:00] LABS: ALBUMIN 2.6 g/dL (3.4-5.0); ANION GAP 16.4 (8-16); CARBON DIOXIDE 24.1 mmol/L (21-32); CREATININE 1.6 mg/dL (0.7-1.3); POTASSIUM 5.5 mmol/L (3.5-5.1); TOTAL BILIRUBIN 0.6 mg/dL (0.0-1.0)
--- NOTE | 2019-06-03 17:01 | NUR ---
GLUCOSE 557 FROM LAB, REPORTED TO DR GEE GLUCOMETER 487 BS
--- NOTE | 2019-06-03 17:06 | NUR ---
DR GEE STATES GIVE BOLUS FOR BLOOD SUGER
[2019-06-03] MEDS ORDERED: NACL 0.9% 1,000 ML IV ONE (17:10)
--- NOTE | 2019-06-03 17:38 | NUR ---
EN ROUTE BY EMS PT RECEIVED 324 ASA, AND TWO NITRO SPRAYS.
--- NOTE | 2019-06-03 17:42 | NUR ---
FAMILY AT BEDSIDE
--- NOTE | 2019-06-03 17:49 | NUR ---
PT NORMALLY ON 4 L O2 AT [facility].
--- NOTE | 2019-06-03 17:55 | NUR ---
Dr. Brantley is evaluating the patient at bedside.
--- NOTE | 2019-06-03 18:09 | NUR ---
ACCUCHECK AFTER 1 L OF FLUIDS 482, PROVIDER MARLEN NOTIFIED.
--- NOTE | 2019-06-03 18:12 | NUR ---
LAB AT BEDSIDE FOR BLOOD CULTURES
[2019-06-03] MEDS ORDERED: cefTRIAXone 2,000 MG VIAL ONE (18:14)
--- NOTE | 2019-06-03 18:20 | NUR ---
DR GEE STATES "PT HAS BIGGER PROBLEMS THAN HIS BS" WHEN ASKED FOR BS MEDICATION
--- NOTE | 2019-06-03 18:30 | NUR ---
ROCPEHIN IVBP STARTED
--- NOTE | 2019-06-03 18:35 | NUR ---
DR GEE AT BEDSIDE SPEAKING WITH PT AND FAMILY
--- NOTE | 2019-06-03 18:36 | NUR ---
NADR, PAIN 09/17
[2019-06-03] MEDS ORDERED: NACL 0.9% 1,000 ML IV SCH (18:38)
[2019-06-03] MEDS ORDERED: DOCUSATE SODIUM 100 MG GELCAP PO PRN (18:40)
[2019-06-03] MEDS ORDERED: MORPHINE SULFATE 2 MG/ML SYR IVP PRN (18:40)
[2019-06-03] MEDS ORDERED: HYDROcodone/APAP 5/325 MG 1 TAB TAB PO PRN (18:40)
[2019-06-03] MEDS ORDERED: HEPARIN PER PHARMACY MC PRN ×2 (18:40→20:30)
[2019-06-03] MEDS ORDERED: ONDANSETRON 4 MG/2 ML VIAL IM/IVP PRN (18:40)
[2019-06-03] MEDS ORDERED: ACETAMINOPHEN 325 MG TAB PO PRN (18:40)
[2019-06-03] MEDS ORDERED: ASPIRIN 325 MG TAB PO SCH (18:50)
--- NOTE | 2019-06-03 18:52 | NUR ---
RESIDENT AT BEDSIDE
--- NOTE | 2019-06-03 18:52 | NUR ---
Dr. Bello is evaluating the patient at bedside.
--- NOTE | 2019-06-03 18:53 | NUR ---
NISHA ([facility])- [phone]
[2019-06-03] MEDS ORDERED: ALBUTEROL SULFATE/IPRATROPIU 3 ML SOL IH PRN (19:15)
[2019-06-03] MEDS ORDERED: MAGNESIUM HYDROXIDE 2400 MG/30 ML UDC PO PRN (19:15)
[2019-06-03] MEDS ORDERED: INSULIN REGULAR, HUMAN 100 UNIT/ML VIAL SUBQ SCH (19:15)
[2019-06-03] MEDS ORDERED: SODIUM POLYSTYRENE 15 GM/60 ML UDBTL PO SCH (19:15)
[2019-06-03] MEDS ORDERED: DEXTROSE 50% 50 ML SYR IVP PRN (19:15)
[2019-06-03] MEDS ORDERED: TICA90TA PO (19:25)
[2019-06-03] MEDS ORDERED: LIP80 PO (19:25)
[2019-06-03] MEDS ORDERED: HYDR-732 PO (19:25)
--- NOTE | 2019-06-03 19:30 | NUR ---
ADMITTED PT FROM ER VIA UMA. AAOX3. ON O2 AT 2L/MIN VIA NC. DENIES PAIN. PT HAS BILATERAL ABOVE KNEE AMPUTATION. AMPUTATED RIGHT HAND FINGERS 2ND DIGIT TO 5TH. SKIN INTACT. IV TO RIGHT AC #20G, PATENT AND INTACT. ORIENTED PT TO ROOM. SAFETY PRECAUTION IN PLACE. CALL LIGHT WITHIN REACH.
[2019-06-03 19:36] LABS: AMYLASE 85 U/L (25-115); LIPASE 410 U/L (73-393); MAGNESIUM 2.2 mg/dL (1.8-2.4); PHOSPHORUS 3.1 mg/dL (2.5-4.9); THYROID STIMULATING HORMONE 2.16 uIU/mL (0.34-3.74)
--- NOTE | 2019-06-03 19:40 | NUR ---
REPORTED CRITICAL LAB RESULT LACTIC ACID 2.[address] ORR. NO NEW ORDER AT THIS TIME.
--- NOTE | 2019-06-03 19:41 | NUR ---
Patient will be admitted to care of [facility]. Admited to TELE. Will go to room 122A. Belongings list completed. Report to LUZ MARIA. INFORMED THAT PTS BS WAS 482 AT 1809 AND THAT ERMD REFUSED TO MEDICATE
[2019-06-03 19:45] VITALS: BP 117/57
[2019-06-03] MEDS ORDERED: hePARIN / DEXT 5% PREMIX 250 ML IV SCH (20:30)
[2019-06-03] MEDS: INSULIN LISPRO SLIDING SCALE 100 UNITS/ML VIAL SUBQ PRN (20:50)
[2019-06-03] MEDS: BLOOD GLUCOSE MONITORING 1 DEV DEV FS SCH (20:55)
--- NOTE | 2019-06-03 20:55 | NUR ---
PT'S BLOOD SUGAR 469. DR. ORR ORDERED TO GIVE 12 UNITS OF HUMALOG SUBQ.
[2019-06-03] MEDS ORDERED: metroNIDAZOLE 500 MG/NS PREMIX 100 ML IV SCH (21:00)
[2019-06-03] MEDS ORDERED: ATORVASTATIN 80 MG TAB PO SCH (21:00)
[2019-06-04] VITALS: BP 110/57
[2019-06-04] MEDS: INSULIN LISPRO SLIDING SCALE 100 UNITS/ML VIAL SUBQ PRN (00:11)
[2019-06-04] MEDS: BLOOD GLUCOSE MONITORING 1 DEV DEV FS SCH ×2 (00:17→04:00)
--- NOTE | 2019-06-04 00:17 | NUR ---
BLOOD SUGAR CHECKED, 338. 8 UNITS OF HUMALOG SUBQ GIVEN. PT TOLERATED WELL.
--- NOTE | 2019-06-04 00:50 | NUR ---
REPORTED CRITICAL TROPONIN 16.[address] ORR. WILL GIVE HEPARIN DRIP PER PROTOCOL.
[2019-06-04] MEDS ORDERED: metroNIDAZOLE 500 MG/NS PREMIX 100 ML IV SCH (01:00)
[2019-06-04] MEDS ORDERED: hePARIN / DEXT 5% PREMIX 250 ML IV SCH (01:00)
--- NOTE | 2019-06-04 01:30 | NUR ---
PT SLEEPING BUT EASILY AROUSABLE. NO S/S OF RESP DISTRESS. PT DENIES PAIN.
--- NOTE | 2019-06-04 03:00 | NUR ---
PT SLEEPING BUT WAKES EASILY. RESP EVEN AND UNLABORED. NO S/S OF PAIN. RESP EVEN AND UNLABORED.
[2019-06-04 04:00] VITALS: BP 158/62
[2019-06-04 04:53] VITALS: BP 158/62
--- NOTE | 2019-06-04 04:56 | NUR ---
WANTED TO TRANSFER PT TO [facility].CALLED BRUCE TALKED W/LEWIS.NO BED.CALLED KILLIAN PUCKETT I WAS ON LINE WAITING FOR 15 MINUTES NO ANSWER FROM TRANSFER CENTER.CALLED [facility].AFTER FAXED ALL INFORMATION FINALLY JIMENEZ CALLED AND GAVE ME ROOM .PT WILL GO TO ROOM 356B.ACCEPTING DR.IS .TELE.TO GIVE REPORT IS [phone].INFORMED AND PAU SHALE MINER BLASTING.GAVE INFORMATION TO LUZ MARIA TO DO D/C PROCESS AND CALL FOR REPORT.WILL CALL FOR [facility].
--- NOTE | 2019-06-04 05:15 | NUR ---
PT WILL BE TRANSFERRED TO [facility]. REPORT GIVEN TO DYLON HILL. PT'S SON NISHA WAS INFORMED OF THE TRANSFER( [phone]).
[2019-06-04] MEDS ORDERED: CEFT1SOL1 IV (05:28)
[2019-06-04] MEDS ORDERED: METR500T1 IV (05:28)
--- NOTE | 2019-06-04 06:51 | NUR ---
PT LEFT WITH 3 [facility] STAFF WITH BELONGINGS (DENTURES). PT GOING TO [facility] ROOM [address] GAMBOA. PT LEFT WITH HEPARIN DRIP. IV TO RIGHT AC #20G, PATENT AND INTACT. PT DENIES PAIN OR SOB. PT IN STABLE CONDITION.
[2019-06-04] MEDS ORDERED: ALBUTEROL SULFATE/IPRATROPIU 3 ML SOL IH SCH (07:00)
[2019-06-04 08:15] LABS: CHOL/HDL RATIO 2.3 (1-4.5)
[2019-06-04] MEDS ORDERED: LACTOBACILLUS RHAMNOSUS GG 1 EACH CAP PO SCH (09:00)
[2019-06-04] MEDS ORDERED: ASPIRIN 81 MG TAB.CHEW PO SCH (09:00)
[2019-06-04] MEDS ORDERED: predniSONE 5 MG TAB PO SCH (09:00)
[2019-06-04] MEDS ORDERED: hydrALAZINE 25 MG TAB PO SCH (09:00)
[2019-06-04] MEDS ORDERED: METOPROLOL 50 MG TAB PO SCH (09:00)
[2019-06-04] MEDS ORDERED: NON-FORMULARY ITEM (Omeprazole* (Prilosec*) 40 MG) PO SCH (09:00)
[2019-06-04] MEDS ORDERED: amLODIPine 5 MG TAB PO SCH (09:00)
[2019-06-04] MEDS ORDERED: NON-FORMULARY ITEM (Multivitamin-Min/Iron/FA/Vit K (Multi-Day Plus Minerals Tablet) 1 TAB) PO SCH (09:00)
[2019-06-04] MEDS ORDERED: cycloSPORINE (MODIFIED) 25 MG CAPLF PO SCH (09:00)
[2019-06-04] MEDS ORDERED: glipiZIDE ER 5 MG TABER PO SCH (09:00)
== END 2019-06-04 06:50 | disposition short-term general hospital (02) | DRG 205 ==
LOC: MED 15:52 → MTU 18:38
PROVIDERS: ADMIT General Practice; ATTEND General Practice
DX: M94.0 Chondrocostal junction syndrome [Tietze] (principal); J69.0 Pneumonitis due to inhalation of food and vomit; N17.0 Acute kidney failure with tubular necrosis; E43 Unspecified severe protein-calorie malnutrition; I24.9 Acute ischemic heart disease, unspecified; Z94.0 Kidney transplant status; Z68.45 Body mass index [BMI] 70 or greater, adult; J44.9 Chronic obstructive pulmonary disease, unspecified; I11.0 Hypertensive heart disease with heart failure; I50.9 Heart failure, unspecified; I25.10 Atherosclerotic heart disease of native coronary artery without angina pectoris; E11.65 Type 2 diabetes mellitus with hyperglycemia; E11.40 Type 2 diabetes mellitus with diabetic neuropathy, unspecified; E87.5 Hyperkalemia; D64.9 Anemia, unspecified; E66.01 Morbid (severe) obesity due to excess calories; K21.9 Gastro-esophageal reflux disease without esophagitis; Z95.5 Presence of coronary angioplasty implant and graft; Z79.82 Long term (current) use of aspirin; Z79.899 Other long term (current) drug therapy; Z86.73 Personal history of transient ischemic attack (TIA), and cerebral infarction without residual deficits; I25.2 Old myocardial infarction; Z95.1 Presence of aortocoronary bypass graft; Z89.612 Acquired absence of left leg above knee; Z89.611 Acquired absence of right leg above knee
CPT/HCPCS: 36415; 71045; 80053; 82140; 82150; 82948; 83036; 83605; 83690; 83735; 83880; 84100; 84134; 84443; 84484; 85025; 85730; 87040; 87081; 93005; 94640; 96361; 96365; 99285; G0482; J0696; J1644; J3490; J7030; J7060; J7620; Q0092